=== PATIENT | male | born 1970 | race Caucasian/White ===

== ENCOUNTER 2021-11-20 18:58 | Emergency (ER) | payer OTHER ==
[~2021-11-20] VITALS: Ht 190.5 cm; Wt 113.4 kg
[~2021-11-20 18:58] MED LIST: ASPI81CT33 PO; ATOR10TA PO; ELVI1TAB2 PO; ESOM20EC PO; IBUP-2218 PO; LISI-486 PO; METH750T5 PO; METO50TE2 PO; WARF10TA19 PO; WARF5TAB1 PO
[2021-11-20 19:06] VITALS: BP 168/98
--- NOTE | 2021-11-20 19:30 | NUR ---
51Y MALE BIB SELF DUE TO L SIDED CHEST PAIN THAT RADIATES TO HIS SHOULDER AND JAW. PAIN STARTED X1 HR AGO. PER PATIENT THE PAIN STARTED SUDDENLY PMH: PE, DVT
--- NOTE | 2021-11-20 19:47 | NUR ---
AT BEDSIDE ASSESSING PT. LAB IS AT BEDSIDE.
--- NOTE | 2021-11-20 19:54 | NUR ---
LAB UNABLE TO COLLECT BLOOD, ANTONY PORTER WILL US GUIDE AN IV LINE, ALL IV MEDS HELD UNTIL THEN. PT IS AWAKE AND ALERT, PLACED IN A GOWN AND GIVEN BLANKET. PT STATES HE FEELS OK. ALL NEEDS MET AT THIS TIME.
--- NOTE | 2021-11-20 20:17 | NUR ---
RAD AT BEDSIDE.
[2021-11-20] MEDS ORDERED: HYDROmorphone PFS 2 MG/ML SYR IVP ONE (21:50)
[2021-11-20] MEDS ORDERED: diphenhydrAMINE 50 MG/ML VIAL IVP ONE (21:50)
[2021-11-20 21:53] LABS: BASOPHILS % (AUTO) 0.4 % (0.0-2.0); EOSINOPHILS # (AUTO) 0.1 K/uL (0-0.4); EOSINOPHILS % (AUTO) 1.7 % (0.0-4.0); HEMATOCRIT 35.1 % (36-52); HEMOGLOBIN 11.3 g/dL (12.0-18.0); LYMPHOCYTES # (AUTO) 1.4 K/uL (2.0-11.5); LYMPHOCYTES % (AUTO) 29.1 % (20.5-51.1); MEAN CORPUSCULAR HEMOGLOBIN 27 pg (27-31); MEAN CORPUSCULAR HGB CONC 32 g/dL (33-37); MEAN CORPUSCULAR VOLUME 84.6 fL (80-94); MONOCYTES # (AUTO) 0.5 K/uL (0.8-1.0); MONOCYTES % (AUTO) 10.5 % (1.7-9.3); NEUTROPHILS # (AUTO) 2.8 K/uL (1.8-7.7); NEUTROPHILS % (AUTO) 58.3 % (42.2-75.2); PLATELET COUNT (AUTO) 184 K/uL (140-450); RED BLOOD CELL COUNT(AUTO) 4.15 MIL/uL (4.20-6.10); RED CELL DISTRIBUTION WIDTH 24.7 % (11.6-13.7); WHITE BLOOD COUNT (AUTO) 4.8 K/uL (4.8-10.8)
--- NOTE | 2021-11-20 22:04 | NUR ---
PT IS AWAKE AND ALERT. IV ESTABLISHED BY ANTONY PORTER. PT MEDICATED PER ORDERS.
[2021-11-20 22:15] LABS: ALBUMIN 3.6 g/dL (3.4-5.0); ANION GAP 13.7 (8-16); CARBON DIOXIDE 22.6 mmol/L (21-32); CREATININE 1.7 mg/dL (0.6-1.3); POTASSIUM 4.3 mmol/L (3.5-5.1); TOTAL BILIRUBIN 0.2 mg/dL (0.0-1.0)
[2021-11-20] MEDS ORDERED: LORazepam 2 MG/ML VIAL IVP ONE (23:15)
--- NOTE | 2021-11-20 23:16 | NUR ---
PT AMBULATED TO .
--- NOTE | 2021-11-20 23:20 | NUR ---
PT BACK IN BED.
[2021-11-20] MEDS ORDERED: LEVOFLOXACIN 500 MG/D5W PREMIX 100 ML IV ONE (23:30)
--- NOTE | 2021-11-20 23:46 | NUR ---
LAB AT BEDSIDE
--- NOTE | 2021-11-21 00:06 | NUR ---
CULTURES HAVE BEEN COLLECTED BY MERY FROM LAB.
[2021-11-21] MEDS ORDERED: cefTRIAXone 1,000 MG VIAL ONE (00:37)
--- NOTE | 2021-11-21 01:19 | NUR ---
PT IS ASKING FOR ANTONY HAYWARD AT BEDSIDE SPEAKING TO PT.
[2021-11-21] MEDS ORDERED: NITROGLYCERIN 2% 1 GM PKT TP ONE (01:25)
[2021-11-21] MEDS ORDERED: ENOXAPARIN 100 MG/ML SYR SUBQ ONE (01:25)
[2021-11-21] MEDS ORDERED: HYDROmorphone PFS 2 MG/ML SYR IVP ONE (01:25)
--- NOTE | 2021-11-21 04:25 | NUR ---
PT AMBULATED TO RR AND BACK TO BED. PT PLACED ON GEROPSYCHOLOGIST, GIVEN EXTRA BLANKETS. ALL NEEDS MET AT THIS TIME. BED LOCKED IN LOWEST POSITION, SIDE RAILS X2 FOR SAFETY.
--- NOTE | 2021-11-21 05:00 | NUR ---
pt asked for benadryl for nausea. nikky atwood stated no.
--- NOTE | 2021-11-21 05:08 | NUR ---
report given to cira maher at [facility]. [id number]
--- NOTE | 2021-11-21 05:36 | NUR ---
pt ambulated to rr and back to bed
[2021-11-21 06:00] VITALS: BP 126/64
--- NOTE | 2021-11-21 06:00 | NUR ---
Patient does not wish to proceed with medical care recommended by . Patient given information related to possible complications, up to and including , which could occur as a result of leaving hospital at this time. Patient verbalizes understanding of risks involved leaving against medical advice. Patient has signed AMA form.
== END 2021-11-21 06:00 | disposition left against medical advice (07) ==
LOC: MED 18:58
DX: R07.89 Other chest pain (principal); Z20.822 Contact with and (suspected) exposure to COVID-19; R06.00 Dyspnea, unspecified; R42 Dizziness and giddiness; I10 Essential (primary) hypertension; I25.2 Old myocardial infarction; Z86.73 Personal history of transient ischemic attack (TIA), and cerebral infarction without residual deficits; Z88.5 Allergy status to narcotic agent; Z88.8 Allergy status to other drugs, medicaments and biological substances; Z79.899 Other long term (current) drug therapy; Z79.82 Long term (current) use of aspirin
CPT/HCPCS: 36415; 71045; 80053; 83605; 83880; 84484; 85025; 85610; 85730; 87040; 87426; 96365; 96367; 96372; 96375; 99285; J0696; J1170; J1200; J1650; J1956; J2060; 93005